=== PATIENT | female | born 1985 | race American Indian/Alaskan Native ===

== ENCOUNTER 2018-05-24 06:11 | Day surgery (SDC) | payer MEDICAID ==
--- NOTE | 2018-05-23 08:56 | History and Physical Report ---
History of Present Illness Date of examination: 05/24/18 Chief complaint: Retained IUD History of present illness: Pt is 33 year old -Stateless female who presents for surgical management of retained IUD after unsuccessful in-office attempts. Past History Past Medical History: no pertinent history Past Surgical History: section [employer] History: trichomonas (remote history) Family/Genetic History: hypertension Social history: no significant social history, smoking Medications and Allergies Allergies Allergy/AdvReac Type Severity Reaction Status Date / Time No Known Allergies Allergy Unverified 05/16/18 16:54 Home Medications Medication Instructions Recorded Confirmed Last Taken Type No Known Home Medications [No 05/16/18 05/16/18 Unknown History Reported Home Medications] Active Meds: Active Medications Cefazolin Sodium (Ancef/Sterile Water 2 Gm/20 Ml) 2 gm in 20 mls @ 80 mls/hr IV PREOP NR; Protocol Review of Systems All systems: negative - Physical Exam Breasts: Positive: deferred Cardiovascular: Regular rate Lungs: Positive: Clear to auscultation Abdomen: Positive: soft Extremities: Positive: normal Results All other labs normal. Ultrasound: other (05/11/18: Uterus 7.32 x 5.73x4.92 cm; IUD observed in uterus) Assessment and Plan A: Retained IUD P: Proceed with hysteroscopic IUD removal and other indicated procedures.
[~2018-05-24 06:11] MED LIST: ANCEF/STERILE WATER 2 GM/20 ML 2 GM/20 ML SYRINGE IV NR
[2018-05-24] MEDS ORDERED: NACL BACTERIOSTATIC INFILTRATI ONE (06:49)
[2018-05-24] MEDS ORDERED: DILAUDID IV PRN (07:11)
[2018-05-24] MEDS ORDERED: TORADOL IV PRN (07:11)
[2018-05-24] MEDS ORDERED: ZOFRAN IV PRN (07:11)
[2018-05-24] MEDS ORDERED: DEMEROL IV PRN (07:11)
[2018-05-24] MEDS ORDERED: XYLOCAINE MPF 2% ONE (07:14)
[2018-05-24] MEDS ORDERED: DECADRON ONE (07:14)
[2018-05-24] MEDS ORDERED: DIPRIVAN 10 MG/ML IV ONE (07:14)
[2018-05-24] MEDS ORDERED: DILAUDID ONE (07:16)
[2018-05-24 07:19] LABS: Hemoglobin 14.7 gm/dl (10.1-14.3); Mean Corpuscular HGB Conc 33 % (30-34); Mean Corpuscular Hemoglobin 30 pg (28-32); Mean Corpuscular Volume 88 fl (79-97); Platelet Count 271 K/mm3 (140-440); Red Blood Count 4.97 M/mm3 (3.65-5.03); Red Cell Distribution Width 13.5 % (13.2-15.2)
--- NOTE | 2018-05-24 07:20 | Anesthesia Day of Surgery ---
Anesthesia Day of Surgery - Day of Surgery Patient Examined: Yes Patient H&P Reviewed: Yes Patient is NPO: Yes (>8 hrs) Beta Blockers: No Cardiac Clearance: Yes Pulmonary Clearance: Yes Hesham's Test: N/A
--- NOTE | 2018-05-24 07:20 | Anesthesia Consultation ---
Anesthesia Consult and Med Hx Date of service: 05/24/18 - Airway Anesthetic Teeth Evaluation: Caps (multiple rear) ROM Head & Neck: Adequate Mental/Hyoid Distance: Adequate Mallampati Class: Class III Intubation Access Assessment: Probably Good - Pulmonary Exam CTA: Yes - Cardiac Exam Cardiac Exam: RRR - Pre-Operative Health Status ASA Pre-Surgery Classification: ASA2 Proposed Anesthetic Plan: General (LMA) - Pre-Anesthesia Comment Pre-Anesthesia Comments: 33y F with h/o retained IUD unable to remove in office now for removal under anesthesia. Current smoker, otherwise healthy. - Pulmonary Hx Smoking: Yes Hx Asthma: No Hx Respiratory Symptoms: No - Cardiovascular System Hx Hypertension: No Hx Coronary Artery Disease: No - Central Nervous System Hx Seizures: No CVA: No Hx Psychiatric Problems: No - Endocrine Hx Renal Disease: No Hx Liver Disease: No - Other Systems Hx Alcohol Use: Yes (occas) Hx Cancer: No - Additional Comments Anesthesia Medical History Comments: 2 prior c/s without complication
[2018-05-24] MEDS ORDERED: MONSEL'S TP ONE (07:28)
[2018-05-24] MEDS ORDERED: SILVER NITRATE TP ONE (07:29)
[2018-05-24] MEDS ORDERED: VERSED IV NR (08:00)
[2018-05-24] MEDS ORDERED: PEPCID PO NR (08:00)
[2018-05-24] MEDS ORDERED: LACTATED RINGERS 1,000 ML IV SCH (08:00)
--- NOTE | 2018-05-24 08:44 | Operative Report ---
Operative Report Operative Report: Date of procedure: May 24, 2018 Preoperative diagnosis: Retained IUD Postoperative diagnosis: Same Procedure: Hysteroscopic IUD removal Surgeon: Camila Blanchard M.D. Anesthesia: Gen. with LMA Findings: 1) 8-10 week size anteverted uterus Estimated blood loss: Minimal IV fluid: 600 mL Urine output: 75 mL prior to the procedure Specimens: IUD, sent to pathology Drains: None Complications: None. Counts correct 2 Disposition: Stable to PACU Indication for procedure: The patient is 33 year old -[place] female who presents for surgical management of retained IUD. Operation in detail: After the risks, benefits, alternatives, and complications of the procedure were explained to the patient, she gave informed consent for the procedure. She was subsequently taken to the operating room with IV noted to be running well and placed in the dorsal supine position. SCDs were noted to be in place and functioning. Anesthesia was then induced without difficulty. The patient was then placed in the dorsal lithotomy position and prepped and draped in a normal sterile fashion. A timeout was performed. A red rubber catheter was used to catheterize the bladder yielding 75 mL of clear urine. An open sided bivalve speculum was then placed into the vagina for adequate visualization of the cervix. The anterior lip of the cervix was then grasped with a single-tooth tenaculum for traction. The cervix was then sequentially dilated with Barnhart dilators to a #23. A 5 mm hysteroscope was then placed into the uterine cavity. The IUD with its strings were visualized. A hysterscopic grasper was not available, so a Tricep hooked-prong grasping forcep was used to bring the IUD strings outside of external cervical os. The hysteroscope was removed from the uterus. A Rosmery was then used to remove the IUD. The IUD appeared intact and was sent to pathology. The single-tooth tenaculum was then removed from the cervix. The tenaculum puncture sites were noted to be hemostatic. The bivalve speculum was then removed from the vagina. At this time the procedure was ended. The patient was replaced into the dorsal lithotomy position and extubated without difficulty. She was subsequently taken to the PACU in stable condition. The patient tolerated the procedure well. All instrument and lap counts were correct 2.
--- NOTE | 2018-05-24 08:47 | Short Stay Summary ---
Short Stay Documentation Date of service: 05/24/18 - History H&P: dictated Social history: no significant social history, smoking - Allergies and Medications Current Medications: Allergies No Known Allergies Allergy (Unverified 05/16/18 16:54) Home Medications Medication Instructions Recorded Confirmed Last Taken Type Ibuprofen [Motrin] 800 mg PO Q8HR PRN #30 tablet 05/24/18 Unknown Rx oxyCODONE /ACETAMINOPHEN [Percocet 1 tab PO Q6HR PRN #30 tablet 05/24/18 Unknown Rx 5/325] Active Medications Famotidine (Pepcid) 20 mg PO PREOP NR Stop: 05/24/18 10:00 Last Admin: 05/24/18 07:29 Dose: 20 mg Hydromorphone HCl (Dilaudid) 0.5 mg IV Q10MIN PRN PRN Reason: Pain , Severe (7-10) Stop: 05/24/18 13:00 Cefazolin Sodium (Ancef/Sterile Water 2 Gm/20 Ml) 2 gm in 20 mls @ 80 mls/hr IV PREOP NR; Protocol Stop: 05/24/18 12:00 Lactated Ringer's (Lactated Ringers) 1,000 mls @ 75 mls/hr IV DIRECT MADIHA Last Admin: 05/24/18 07:00 Dose: 75 mls/hr Ketorolac Tromethamine (Toradol) 30 mg IV ONCE PRN PRN Reason: Pain, Moderate (4-6) Stop: 05/24/18 13:00 Meperidine HCl (Demerol) 25 mg IV ONCE PRN PRN Reason: Shivering Stop: 05/24/18 13:00 Midazolam HCl (Versed) 2 mg IV PREOP NR Stop: 05/24/18 23:59 Last Admin: 05/24/18 07:30 Dose: 2 mg Ondansetron HCl (Zofran) 4 mg IV ONCE PRN PRN Reason: Nausea And Vomiting Stop: 05/24/18 10:00 - Physical exam Breasts: deferred - Brief post op/procedure progress note Date of procedure: 05/24/18 Pre-op diagnosis: Retained IUD Post-op diagnosis: same Procedure: Hysteroscopic IUD Removal Anesthesia: GETA Findings: 1) Small anteverted uterus Surgeon: CRUZITO ESTEVES Estimated blood loss: minimal (5 mL) Pathology: list (IUD) Specimen disposition: to lab Condition: stable - Hospital course Hospital course: Pt underwent hysteroscopic IUD removal which she tolerated well. She was observed in the PACU until she met discharge criteria. - Disposition Condition at discharge: Stable Disposition: DC- TO HOME OR SELFCARE - Discharge Diagnoses (1) IUD strings lost Status: Acute Qualifiers: Encounter type: sequela Qualified Code(s): T83.32XS - Displacement of intrauterine contraceptive device, sequela (2) Tobacco abuse Status: Acute Short Stay Discharge Plan Activity: other (Nothing in vagina x 4 weeks ) Weight Bearing Status: Full Weight Bearing Diet: regular Follow up with: ROSALIND GODINEZ MD [Primary Care Provider] - 7 Days CRUZITO ESTEVES MD [Staff Physician] - 06/07/18 (please schedule postoperative appt ) Prescriptions: Ibuprofen [Motrin] 800 mg PO Q8HR PRN #30 tablet PRN Reason: Pain, Moderate (4-6) oxyCODONE /ACETAMINOPHEN [Percocet 5/325] 1 tab PO Q6HR PRN #30 tablet PRN Reason: Pain
--- NOTE | 2018-05-24 09:48 | Post Anesthesia Evaluation ---
- Post Anesthesia Evaluation Patient Participated: Yes Airway Patent: Yes Stable Respiratory Function: Yes Nausea/Vomiting: No Temp > 96.8F: Yes Pain Manageable: Yes Adequeate Hydration: Yes Anesthesia Complications: No
[2018-05-24] MEDS ORDERED: NORCO 5/325 PO SCH (10:23)
[2018-05-24 17:14] VITALS: BP 132/91
== END 2018-05-24 11:45 | disposition home or self-care (01) ==
LOC: OR 06:11
PROVIDERS: ATTEND Obstetrics & Gynecology
DX: Z30.432 Encounter for removal of intrauterine contraceptive device (principal); F17.200 Nicotine dependence, unspecified, uncomplicated; Z79.899 Other long term (current) drug therapy
CPT/HCPCS: 36415; 58562; 81025; 85027; 88300; J0690; J1100; J1170; J1885; J2250; J2405; J2704; J7120; 88302